=== PATIENT | female | born 1985 | race African-American/Black ===

== ENCOUNTER 2018-05-23 12:07 | Emergency (ER) | payer MEDICAID ==
[2018-05-23] MEDS ORDERED: KETOROLAC 30 MG INJ IM (14:00)
== END 2018-05-23 14:27 | disposition home or self-care (01) ==
LOC: FTE 14:27
DX: R10.84 Generalized abdominal pain (principal); F17.210 Nicotine dependence, cigarettes, uncomplicated
CPT/HCPCS: 81025; 99282